=== PATIENT | female | born 1950 | race Caucasian/White ===

== ENCOUNTER → 2017-04-25 | Outpatient (CLI) | payer OTHER | LOC: RAD 01:23 | DX: Z12.31 Encounter for screening mammogram for malignant neoplasm of breast (principal) ==

== ENCOUNTER → 2018-04-26 | Outpatient (CLI) | payer OTHER | LOC: RAD 04:08 | DX: Z12.31 Encounter for screening mammogram for malignant neoplasm of breast (principal) ==

== ENCOUNTER → 2019-04-27 | Outpatient (CLI) | payer OTHER | LOC: RAD 11:03 | DX: Z12.31 Encounter for screening mammogram for malignant neoplasm of breast (principal) ==

== ENCOUNTER → 2020-04-30 | Outpatient (CLI) | payer OTHER | LOC: RAD 09:29 → BC 16:26 | PROVIDERS: ATTEND Internal Medicine Hematology & Oncology | DX: Z12.31 Encounter for screening mammogram for malignant neoplasm of breast (principal) ==

== ENCOUNTER → 2020-11-10 | Outpatient (CLI) | payer OTHER ==
[2020-11-10 10:26] LABS: CREATININE 1.2 mg/dL (0.6-1.0)
== END ==
LOC: MRI 09:02
PROVIDERS: ATTEND Internal Medicine Hematology & Oncology
DX: M47.817 Spondylosis without myelopathy or radiculopathy, lumbosacral region (principal); M41.86 Other forms of scoliosis, lumbar region; M51.36 Other intervertebral disc degeneration, lumbar region; M51.35 Other intervertebral disc degeneration, thoracolumbar region; N28.1 Cyst of kidney, acquired; N94.89 Other specified conditions associated with female genital organs and menstrual cycle

== ENCOUNTER → 2021-05-05 | Outpatient (CLI) | payer OTHER | LOC: BC 12:43 | PROVIDERS: ATTEND Internal Medicine Hematology & Oncology | DX: Z12.31 Encounter for screening mammogram for malignant neoplasm of breast (principal); N63.22 Unspecified lump in the left breast, upper inner quadrant; N64.59 Other signs and symptoms in breast ==

== ENCOUNTER → 2021-05-08 | Outpatient (CLI) | payer OTHER | LOC: ULTRA 11:10 | PROVIDERS: ATTEND Internal Medicine Hematology & Oncology | DX: N60.02 Solitary cyst of left breast (principal); N63.20 Unspecified lump in the left breast, unspecified quadrant ==